=== PATIENT | female | born 1985 | race Caucasian/White ===

== ENCOUNTER 2018-10-23 15:09 | Emergency (ER) | payer BC ==
[~2018-10-23] VITALS: Ht 175.3 cm; Wt 63.5 kg
--- NOTE | 2018-10-23 15:36 | NUR ---
Patient discharged to home with family in stable conditon & atedy gait. Written and verbal after care instructions given to patient. Patient verbalizes understanding of instructions.
== END 2018-10-23 15:36 | disposition home or self-care (01) ==
LOC: ER 15:11
DX: S09.90XA Unspecified injury of head, initial encounter (principal); V43.62XA Car passenger injured in collision with other type car in traffic accident, initial encounter; Y93.89 Activity, other specified; Y92.488 Other paved roadways as the place of occurrence of the external cause; Y99.8 Other external cause status
CPT/HCPCS: A4663